=== PATIENT | male | born 1985 | race Caucasian/White ===

== ENCOUNTER 2023-06-23 22:28 | Emergency (ER) | payer OTHER ==
[~2023-06-23] VITALS: Ht 172.7 cm; Wt 93.0 kg
[2023-06-23 22:30] VITALS: BP 148/100; PULSE 122; RESP 19; TEMP 98.1; O2SAT 97
[2023-06-24 00:15] VITALS: BP 148/100; PULSE 122; RESP 19; TEMP 98.1; O2SAT 97
== END 2023-06-24 00:15 | disposition home or self-care (01) ==
LOC: MED 22:28
DX: H00.014 Hordeolum externum left upper eyelid (principal)
CPT/HCPCS: 99281